=== PATIENT | female | born 2000 | race Two or more races ===

== ENCOUNTER 2023-10-17 12:55 | Emergency (ER) | payer OTHER ==
[~2023-10-17] VITALS: Ht 170.2 cm; Wt 90.9 kg
[2023-10-17 12:59] VITALS: TEMP 98.2
[2023-10-17] MEDS: BACITRACIN 0.9 GM PACKET OINTMENT TP ONE (14:08)
[2023-10-17 14:11] VITALS: BP 113/51; PULSE 71; RESP 18
== END 2023-10-17 14:14 | disposition home or self-care (01) ==
LOC: EMS 12:56
DX: S60.312A Abrasion of left thumb, initial encounter (principal); X58.XXXA Exposure to other specified factors, initial encounter; Y93.89 Activity, other specified; Y92.89 Other specified places as the place of occurrence of the external cause; Y99.8 Other external cause status
CPT/HCPCS: 99282; Z7502; Z7610